=== PATIENT | female | born 1995 | race Caucasian/White ===

== ENCOUNTER 2016-10-24 07:55 | Inpatient (IN) ==
[2016-10-24] MEDS ORDERED: Metoclopramide 10 MG/2 ML VIAL IVP PRN (08:25)
[2016-10-24] MEDS ORDERED: miSOPROStol 25 MCG TABLET PO PRN (08:25)
[2016-10-24] MEDS ORDERED: Ondansetron 4 MG/2 ML VIAL IVP PRN (08:25)
[2016-10-24] MEDS ORDERED: Famotidine 20 MG/2 ML VIAL IVP PRN (08:25)
[2016-10-24] MEDS ORDERED: Ringers Solution, Lactated 1,000 ML IVC SCH (08:30)
--- NOTE | 2016-10-24 08:31 | OB/GYN History & Physical ---
Date of Encounter: 10/24/16 Time of Encounter: 08:31 Assessment and Plan (1) 39 weeks gestation of Current visit: Yes Status: Acute (2) Elective induction of labor planned Current visit: Yes Status: Acute (3) Tobacco use affecting in third trimester, antepartum Current visit: Yes Status: Chronic (4) Obesity affecting in third trimester Current visit: Yes Status: Chronic (5) Rubella non-immune status, antepartum Current visit: Yes Status: Acute History of Present Illness HPI: Ms. Slaughter is a 21 year old female EDC 10/26/16 at 39 weeks for elective induction of labor. See full H&P in eCW. GBS negative, Rubella non-immune, Rh positive. Past Med Surg Social Fam HX - Past Medical History Medical history: no medical history Psychiatric history: no psych history - Past Surgical History Surgical History: no surgical history - Social History Smoking Status: Current every day smoker Smokeless Tobacco Status: No Alcohol use: none Drug use: none Medications and Allergies No Known Home Drugs 10/12/15 [History] Allergies No Known Allergies Allergy (Verified 02/12/16 17:45) Results All other labs normal. - VTE Reasons for not Prescribing Prophylaxis: Treatment not Indicated - Low risk for VTE
[2016-10-24 09:09] LABS: Basophils % 0.2 %; Eosinophils # 0.1 K/mcL (0.0-0.6); Eosinophils % 1.7 %; Hematocrit 33.5 % (35.3-44.9); Immature Granulocytes % 0.2 % (0-4); Lymphocytes # 1.5 K/mcL (0.6-4.6); Lymphocytes % 22.8 %; Mean Corpuscular HGB Conc 32.8 g/dL (31.6-35.5); Mean Corpuscular Hemoglobin 29.1 pg (28.0-33.3); Mean Corpuscular Volume 88.6 fL (83.0-100.0); Mean Platelet Volume 10.4 fL (9.4-12.4); Monocytes # 0.4 K/mcL (0.0-1.3); Monocytes % 5.8 %; Neutrophils # 4.5 K/mcL (1.6-8.9); Platelet Count 163 K/mcL (140-400); Red Blood Count 3.78 M/mcL (3.82-4.97); Red Cell Distribution Width 15.4 % (11.5-14.5); Segmented Neutrophils % 69.3 %
--- NOTE | 2016-10-24 13:27 | OB Labor Progress Note ---
Date of Encounter: 10/24/16 Time of Encounter: 13:25 Labor Progress Note - Subjective Subjective: Patient resting in bed. Discussed POC with patient. Patient denies any questions or concerns. - Cervix Cervix: 5/80/-1 - Heart Tones Heart Tones: 150 bpm moderate variability +15x15 accels no decels noted. Cat. 1 tracing. - [place]: 2.5-3 min apart - Interventions Interventions: SVE, AROM moderate amount of clear fluid noted. IUPC placed without difficulty. Patient tolerated well. - Plan Plan: Continue labor management. Patient may have nubain or epidural for pain management if needed.
[2016-10-24] MEDS ORDERED: *HR* FentaNYL (PF) 100 MCG/2 ML VIAL EP ONE (14:17)
[2016-10-24] MEDS ORDERED: Bupivacaine-MPF 0.25% 10 ML VIAL EP ONE (14:17)
[2016-10-24] MEDS ORDERED: Epidural Premix (fent/bupiv) 110 ML EP ONE (14:19)
[2016-10-24] MEDS ORDERED: Bupivacaine-MPF 0.25% 10 ML VIAL ONE (14:19)
[2016-10-24] MEDS ORDERED: *HR* FentaNYL (PF) 100 MCG/2 ML VIAL ONE (14:19)
[2016-10-24] MEDS ORDERED: Epidural Premix (fent/bupiv) 110 ML EP SCH (14:30)
--- NOTE | 2016-10-24 15:12 | OB Labor Progress Note ---
Date of Encounter: 10/24/16 Time of Encounter: 15:10 Labor Progress Note - Subjective Subjective: Patient resting comfortably with epidural in place. Patient denies any needs. - Cervix Cervix: 8/100/0 - Heart Tones Heart Tones: 135 bpm moderate variability +15x15 accels no decels noted. CAt. 1 tracing. - [place]: 1.5-2 min apart - Interventions Interventions: SVE - Plan Plan: Continue labor management.
--- NOTE | 2016-10-24 15:12 | Anesthesia Evaluation PreOp ---
Date of Encounter: 10/24/16 Time of Encounter: 14:10 - Past History Planned Operation: labor epidural Cardiac History: Denies any Significant Hx Pulmonary History: Denies Any Significant HX, Smoker (smokes 3-4 cigarettes per day.) BUFFER CHROME History: Denies Any Significant HX Other Medical History: Denies Any Significant HX Anesthesia History: No Prior Anesthetic Complications, Past Anesthesia (T&A as child. No family history of anesthetic complications.) : Yes Alcohol Use: none Drug use: none Medications and Allergies Vit Calc,Iron,Folic [ Vitamins] 1 tab PO DAILY 10/24/16 [ History] Allergies No Known Allergies Allergy (Verified 02/12/16 17:45) - Meds/Allergy Pre-op Review Medications Reviewed: Yes Allergies Reviewed: Yes Beta Blockers on Current Med List: No Anesthesia Results - Labs 10/24/16 08:44 Anesthesia Exam 129/79, 98, 16, 97% Height: 5'9" Weight: 109 kg NPO (# of Hours): 6 Pain Scale: 8 Pain Scale Used: Numeric (1 - 10) - HEENT Pupil (Motor): EOMI Mallampati: III Teeth: Poor dentition Oral Opening: Greater than 3 - BUFFER [place]ROME LOC: Oriented [place] Motor: Normal RUE, Normal LUE, Normal RLE, Normal LLE, Normal Face BUFFER CHROME Sensory: Normal: RUE, LUE, RLE, LLE, Face - Cardiac Rhythm: Regular Murmur: None - Pulmonary Breath Sounds: bilateral Clear Respiratory Effort: Symmetrical Anesthesia Assess/Plan ASA Score: 2 Modified Aiken Scale for Level of Consciousness: Cooperative, oriented, and tranquil Anesthetic Plan: Regional Monitoring Plan: Standard Monitors
--- NOTE | 2016-10-24 15:16 | Anesthesia Procedures ---
Date of Encounter: 10/24/16 Time of Encounter: 14:21 Procedures: Anesthesia - Epidural/Spinal Patient ID/Chart reviewed: Yes Patient examined: Yes OB Eval: Gestational age: 39 OB Eval: : 2 OB Eval: Hx Para: 1 OB Eval: Dilated at (cm): 4 OB Eval: Contractions: Non-stressed pattern Consent Obtained: Yes Supplemental Oxygen: None/Room Air Site Prep: Aseptic Technique, Sterile prep and drape, Povidone-Iodine 1% Patient position: upright Local Anesthetic: Lidocaine 1% Amount of Local Anesthetic used: 3 Touhy Needle Gauge: 18 Touhy Needle Depth (cm): 6 Catheter Depth at Skin (cm): 18 Test Dose (1.5% Lido + Epi): Volume given (mls): 3 Test Dose Result: Negative Loading Dose: 0.25% Marcaine (mls): 8 Loading Dose: Fentanyl (mcg): 100 Loading Dose Administered: Thru Catheter Infusion Med: 0.125% Bupivacaine w/ 2 mcg/ml Fentanyl Infusion Rate (mls/hr): [address]: Tegaderm, Tape Interspace Used: L3-L4 Loss of Resistance (VERONICA): Yes Blood: No CSF: No Paresthesia: No Vitals + FHT's: 3 Vital Signs Time 1425 1430 1435 1440 1445 1450 BP 157/94 159/96 148/96 152/89 151/92 153/72 Pulse 82 89 85 64 66 65 FHTs 140 140 140 140 140 140
[2016-10-24] MEDS ORDERED: Oxytocin 20 units/ LR 1000 mL 20 UNIT/1,000 ML BAG IVC ONE ×2 (15:30→18:27)
[2016-10-24] MEDS ORDERED: Lidocaine 1% 20 ML MDV ONE (15:30)
--- NOTE | 2016-10-24 16:01 | OB/GYN Procedure Note ---
Delivery - Delivery Date: 10/24/16 Provider: Zuhair Bowles Intrapartum events: none Delivery induction: misoprostol Delivery augmentation: rupture of membranes Delivery monitor: external FHT, external uterine, internal uterine Anesthesia: epidural Estimated Blood Loss: 300 - (s) A Infant Delivery Date: 10/24/16 Infant Delivery Time: 15:28 Presentation: vertex Position: RAE Route of delivery: Gender: Female Viability: Viable Pounds: 7 Ounces: 7 Weight Gram: 3.38 kg at 1 minute: 8 at 5 mins: 9 Shoulder Dystocia: not encountered Specimens collected: cord blood Placenta: spontaneous Cord: 3 umbilical vessels - Repair Episiotomy: none Laceration Description: Perineal - 2nd Degree, Labial - Complications Delivery complications: none - Disposition Mom disposition: stable in LDR [place]ro[place] disposition: stable in LDR - Comments Comments: Patient progressed to complete dilatation and had a spontaneous vaginal delivery a viable female infant. scores were 8 and 9 at one and 5 minutes respectively, and the weighed 7 lbs. 7 oz. The placenta delivered spontaneously and appeared intact. Bilateral labial lacerations were repaired with 4-0 Vicryl suture, and a second-degree perineal laceration was repaired with 3-0 Vicryl suture. All sponge needle and sponge counts reported as correct. Estimated blood loss 300 mL's. No shoulder dystocia was encountered, no nuchal cord was present.
[2016-10-24] MEDS ORDERED: *HR* Acetaminophen w/Cod 300-30 mg 1 TAB TABLET PO PRN (18:27)
[2016-10-24] MEDS ORDERED: Measles/Mumps/Rubella Vacc 0.5 ML VIAL SQ PRN (18:27)
[2016-10-24] MEDS ORDERED: Ibuprofen 600 MG TABLET PO PRN (18:27)
[2016-10-24] MEDS ORDERED: Oxytocin 20 units/ LR 1000 mL 20 UNIT/1,000 ML BAG IV SCH (18:27)
[2016-10-24] MEDS ORDERED: Acetaminophen 325 MG TABLET PO PRN (18:27)
[2016-10-25 06:30] LABS: Eosinophils # 0.1 K/mcL (0.0-0.6); Eosinophils % 1.1 %; Hematocrit 30.9 % (35.3-44.9); Hemoglobin 10.3 g/dL (11.5-15.4); Immature Granulocytes % 0.4 % (0-4); Lymphocytes # 1.5 K/mcL (0.6-4.6); Lymphocytes % 17.4 %; Mean Corpuscular HGB Conc 33.3 g/dL (31.6-35.5); Mean Corpuscular Hemoglobin 29.9 pg (28.0-33.3); Mean Corpuscular Volume 89.8 fL (83.0-100.0); Mean Platelet Volume 10.7 fL (9.4-12.4); Monocytes # 0.5 K/mcL (0.0-1.3); Monocytes % 5.9 %; Neutrophils # 6.4 K/mcL (1.6-8.9); Platelet Count 137 K/mcL (140-400); Red Blood Count 3.44 M/mcL (3.82-4.97); Red Cell Distribution Width 15.4 % (11.5-14.5); Segmented Neutrophils % 75.2 %
[2016-10-25] MEDS ORDERED: Prenatal Vit/FA 1 EACH TABLET PO SCH (09:00)
[2016-10-25 09:12] VITALS: BP 132/77
--- NOTE | 2016-10-25 10:00 | Discharge Summary ---
Date of Encounter: 10/25/16 Time of Encounter: 09:58 - Discharge Diagnosis (1) Status post vaginal delivery Priority: Primary Status: Acute Comments: Continue routine care discharge home today follow up with Dr. Bowles in 4-6 weeks - Discharge Medications Prescriptions: Ibuprofen Susp [Motrin Susp] 600 mg PO Q6HR PRN 14 Days PRN Reason: Cramping Home Medications: Vit Calc,Iron,Folic [ Vitamins] 1 tab PO DAILY 10/24/16 [ History] Ibuprofen Susp [Motrin Susp] 600 mg PO Q6HR PRN 14 Days 10/25/16 [Rx] Vit/FA 1 each PO DAILY tablet 10/25/16 [Rx] Allergies/Adverse Reactions: Allergies No Known Allergies Allergy (Verified 02/12/16 17:45) Data Procedures and tests throughout hospitalization: Laboratory Tests 10/24/16 10/25/16 08:44 06:10 WBC 6.5 8.5 RBC 3.78 L 3.44 L Hgb 11.0 L 10.3 L Hct 33.5 L 30.9 L MCV 88.6 89.8 MCH 29.1 29.9 MCHC 32.8 33.3 RDW 15.4 H 15.4 H Plt Count 163 137 L MPV 10.4 10.7 Immature Gran % 0.2 0.4 Seg Neutrophils % 69.3 75.2 Lymphocytes % 22.8 17.4 Monocytes % 5.8 5.9 Eosinophils % 1.7 1.1 Basophils % 0.2 0.0 Neutrophils # 4.5 6.4 Lymphocytes # 1.5 1.5 Monocytes # 0.4 0.5 Eosinophils # 0.1 0.1 Basophils # 0.0 0.0 Labs on day of discharge: Labs from last 24 hours 10/25/16 06:10 WBC 8.5 RBC 3.44 L Hgb 10.3 L Hct 30.9 L MCV 89.8 MCH 29.9 MCHC 33.3 RDW 15.4 H Plt Count 137 L MPV 10.7 Immature Gran % 0.4 Seg Neutrophils % 75.2 Lymphocytes % 17.4 Monocytes % 5.9 Eosinophils % 1.1 Basophils % 0.0 Neutrophils # 6.4 Lymphocytes # 1.5 Monocytes # 0.5 Eosinophils # 0.1 Basophils # 0.0 Date of admission: 10/24/16 07:55 Primary care physician: PCP NO Consults: 10/24/16 18:27 Consult to Hospital Staff Pharmacist [CONS] Routine Comment: Vaginal delivery, consult needed Discharging clinician: Dona Reeves Anticipated date of discharge: 10/25/16 - Patient Status Disposition: Home, Self-Care Condition: Good Functional capacity at discharge: independent ambulation - Discharge Instructions Follow Up With: NO,PCP [Primary Care Provider] - Zuhair Bowles DO [Partnered Physician] - - Diet and Activity Activity: increase activity as tolerated Diet: regular diet Hospital Course Reason for admission: induction of labor Delivery: Episiotomy: none Other procedures: none complications: none Discharge diagnosis: IUP at term delivered [place] baby: female (bottle feeding) Time Attestation: Total time spent providing and/or coordinating discharge services: Time Spent: Less than 30 minutes Exam - Constitutional Vitals: Temp Pulse Resp BP Pulse Ox 97.7 F 85 16 132/77 97 10/25/16 08:55 10/25/16 08:55 10/25/16 08:55 10/25/16 08:55 10/25/16 08:55 General appearance IM: A&O X 3, pleasant, answers questions appropriately - Respiratory Respiratory exam: Present: CTAB - Cardiovascular Cardiovascular exam IM: Present: RRR, +S1, +S2 - GI/Abdominal GI/Abdominal exam IM: normal bowel sounds - Uterine Tone: Firm Uterus Position: 1 Finger Below Umbilicus, Midline - Extremities Exam Extremities exam IM: Present: full ROM, normal capillary refill, normal inspection - Neurological Exam Neurological exam: alert, oriented X3, reflexes normal
== END 2016-10-25 12:40 | disposition home or self-care (01) | DRG 560 ==
LOC: 1NENULAB 07:55 → 1NENUOBS 17:55

== ENCOUNTER → 2018-01-08 23:15 | Observation (INO) ==
[2018-01-08 21:55] LABS: Bilirubin,Urine Negative (Negative); Blood,Urine Negative (Negative); Clarity,Urine Clear (Clear); Color,Urine Yellow (Yellow); Glucose,Urine (UA) Normal (Normal); Ketones,Urine Negative (Negative); Leukocyte Esterase,Urine Small (Negative); Nitrite,Urine Negative (Negative); PH,Urine 6.5 pH Units (5.0-8.0); Protein,Urine Negative (Neg-Trace); Specific Gravity,Urine 1.026 (1.010-1.025); Urobilinogen,Urine Normal (Normal)
[2018-01-08 21:58] LABS: Bacteria,Urine Few per hpf (None-Few); Hyaline Casts,Urine None Seen per lpf (None-Few); Squamous Epithelial Cell,Urine Many per lpf (None-Few); WBC,Urine 15-30 per hpf (0-3)
[2018-01-08 22:02] LABS: Amphetamine Screen,Urine Negative ng/mL (Cutoff=1000); Barbiturate Screen,Urine Negative ng/mL (Cutoff=200); Benzodiazepines Screen,Urine Negative ng/mL (Cutoff=200); Cannabinoid Screen,Urine Negative ng/mL (Cutoff = 50); Cocaine Screen,Urine Negative ng/mL (Cutoff= 300); Opiate Screen,Urine Negative ng/mL (Cutoff=300); Phencyclidine Screen,Urine Negative ng/mL (Cutoff=25)
--- NOTE | 2018-01-08 23:14 | OB/GYN Progress Note ---
Date of Encounter: 01/08/18 Time of Encounter: 23:10 - Assessment and Plan (1) Suprapubic pressure Current Visit: Yes Status: Acute Reactive NST No uterine contractions Urinalysis suspicious for contamination Increased specific gravity Discharge home with labor precautions and kick counts Increase po hydration Follow up with Dr. Valdivia for visit as scheduled and prn (2) 29 weeks gestation of Current Visit: Yes Status: Acute Subjective - Subjective Interval history: 22 year old at 29 weeks and 4 days presents to triage with complaints lower abdominal pressure. Denies vaginal bleeding, itching and burning, leaking fluid and intercourse in past 24 hours. Denies dysuria. States baby moving well. Patient receives care from Dr. Valdivia in [place]. Objective - Vital Signs Vital Signs: Intake and Output 01/08/18 01/08/18 01/08/18 07:59 15:59 23:59 Other: Weight 109 kg Patient Weight 01/08/18 23:59 Weight 109 kg - Exam FHR: category 1 FHR comments: 140 Auscultation: bilateral: normal Abdomen: Present: soft, gravid Uterus: Present: normal - Labs Labs: Abnormal lab results Ur Specific [place] 1.026 (1.010-1.025) H 01/08/18 21:43 Ur Leukocyte Esterase Small (Negative) H 01/08/18 21:43 Urine Microscopic RBC 3-5 per hpf (0-3) H 01/08/18 21:43 Urine Microscopic WBC 15-30 per hpf (0-3) H 01/08/18 21:43 Ur Squamous Epith Cells Many per lpf (None-Few) H 01/08/18 21:43 Ur Culture Indicated? NO. (NO) A 01/08/18 21:43
== END | disposition home or self-care (01) ==
LOC: 1NENULAB
PROVIDERS: ADMIT Student in an Organized Health Care Education/Training Program; ATTEND Student in an Organized Health Care Education/Training Program

== ENCOUNTER 2018-03-05 01:32 | Observation (INO) ==
[2018-03-05 02:16] LABS: Amphetamine Screen,Urine Negative ng/mL (Cutoff=1000); Barbiturate Screen,Urine Negative ng/mL (Cutoff=200); Benzodiazepines Screen,Urine Negative ng/mL (Cutoff=200); Cannabinoid Screen,Urine Negative ng/mL (Cutoff = 50); Cocaine Screen,Urine Negative ng/mL (Cutoff= 300); Opiate Screen,Urine Negative ng/mL (Cutoff=300); Phencyclidine Screen,Urine Negative ng/mL (Cutoff=25)
--- NOTE | 2018-03-05 05:38 | OB/GYN Progress Note ---
Date of Encounter: 03/05/18 Time of Encounter: 05:35 - Assessment and Plan (1) 38 weeks gestation of Status: Acute Continue care as scheduled with Dr. Valdivia Labor precautions given Discharge home (2) NST (non-stress test) reactive on surveillance Status: Acute Subjective - Subjective Principal diagnosis: Vaginal pressure Interval history: Ms. Slaughter presents to labor and delivery with complaint of vaginal pressure and contractions. She is a patient of Dr. Valdivia's. She endorses good movement and denies leakage of fluid and vaginal bleeding. Antepartum ROS: new complaints, movement normal, contractions, no loss of fluid, no vaginal bleeding Objective - Exam FHR: category 1 FHR comments: Baseline 130 Moderate variability Accelerations present 15x15 No Decelerations FHR category I Singular contraction on toco along with irritability Auscultation: bilateral: normal Abdomen: Present: normal appearance, soft, gravid Uterus: Present: normal, firm Cervical dilation: 2-3 per RN Cervix effacement: 50 station: -2
== END 2018-03-05 03:30 | disposition home or self-care (01) ==
LOC: 1NENULAB
PROVIDERS: ADMIT Advanced Practice Midwife; ATTEND Advanced Practice Midwife

== ENCOUNTER → 2018-03-10 22:28 | Observation (INO) ==
[2018-03-10 20:57] LABS: Bilirubin,Urine Negative (Negative); Blood,Urine Negative (Negative); Clarity,Urine Cloudy (Clear); Color,Urine Yellow (Yellow); Glucose,Urine (UA) Normal (Normal); Ketones,Urine Negative (Negative); Leukocyte Esterase,Urine Small (Negative); Nitrite,Urine Negative (Negative); PH,Urine 6.5 pH Units (5.0-8.0); Protein,Urine Negative (Neg-Trace); Specific Gravity,Urine 1.019 (1.010-1.025); Urobilinogen,Urine Normal (Normal)
[2018-03-10 21:00] LABS: Bacteria,Urine None Seen per hpf (None-Few); Hyaline Casts,Urine None Seen per lpf (None-Few); Squamous Epithelial Cell,Urine Many per lpf (None-Few)
[2018-03-10 21:07] LABS: Amphetamine Screen,Urine Negative ng/mL (Cutoff=1000); Barbiturate Screen,Urine Negative ng/mL (Cutoff=200); Benzodiazepines Screen,Urine Negative ng/mL (Cutoff=200); Cannabinoid Screen,Urine Negative ng/mL (Cutoff = 50); Cocaine Screen,Urine Negative ng/mL (Cutoff= 300); Opiate Screen,Urine Negative ng/mL (Cutoff=300); Phencyclidine Screen,Urine Negative ng/mL (Cutoff=25)
--- NOTE | 2018-03-10 22:03 | Discharge Summary ---
Date of Encounter: 03/10/18 Time of Encounter: 22:02 - Discharge Diagnosis (1) 37 weeks gestation of Priority: Primary Status: Acute Comments: admitted for labor evaluation No cervical change false labor discharge home follow up with OB provider (2) NST (non-stress test) reactive on surveillance Priority: Secondary Status: Acute Comments: baseline 125 bpm moderate variability +15x15 accels no decels noted. - Discharge Medications Home Medications: [place] Complete 1 PO DAILY 03/05/18 [History] Allergies/Adverse Reactions: 3 Allergy/AdvReac Type Severity Reaction Status Date / Time No Known Allergies Allergy Verified 11/25/16 21:39 Data Procedures and tests throughout hospitalization: Laboratory Tests 03/10/18 03/10/18 20:30 20:30 Urine Color Yellow Urine Clarity Cloudy A Urine pH 6.5 Ur Specific [place] 1.019 Urine Protein Negative Urine Glucose (UA) Normal Urine Ketones Negative Urine Blood Negative Urine Nitrite Negative Urine Bilirubin Negative Urine Urobilinogen Normal Ur Leukocyte Esterase Small H Urine Microscopic RBC 5-15 H Urine Microscopic WBC 5-15 H Ur Squamous Epith Cells Many H Urine Bacteria None Seen Hyaline Casts None Seen Ur Culture Indicated? NO. A Urine Opiates Screen Negative Ur Barbiturates Screen Negative Ur Phencyclidine Scrn Negative Ur Amphetamines Screen Negative U Benzodiazepines Scrn Negative Urine Cocaine Screen Negative U Marijuana (THC) Screen Negative Labs on day of discharge: Labs from last 24 hours 03/10/18 03/10/18 20:30 20:30 Urine Color Yellow Urine Clarity Cloudy A Urine pH 6.5 Ur Specific [place] 1.019 Urine Protein Negative Urine Glucose (UA) Normal Urine Ketones Negative Urine Blood Negative Urine Nitrite Negative Urine Bilirubin Negative Urine Urobilinogen Normal Ur Leukocyte Esterase Small H Urine Microscopic RBC 5-15 H Urine Microscopic WBC 5-15 H Ur Squamous Epith Cells Many H Urine Bacteria None Seen Hyaline Casts None Seen Ur Culture Indicated? NO. A Urine Opiates Screen Negative Ur Barbiturates Screen Negative Ur Phencyclidine Scrn Negative Ur Amphetamines Screen Negative U Benzodiazepines Scrn Negative Urine Cocaine Screen Negative U Marijuana (THC) Screen Negative Date of admission: 03/10/18 20:18 Discharging clinician: Dona Reeves Anticipated date of discharge: 03/10/18 - Patient Status Disposition: Home, Self-Care Condition: Good Functional capacity at discharge: independent ambulation - Discharge Instructions Follow Up With: Floyd Valdivia MD [Non-Partnered Physician] - - Diet and Activity Activity: increase activity as tolerated Hospital Course [employer] Hospital course: Patient is a 22 y/o at 37 weeks gestation presents to labor and delivery with with complaints of contractions. Patient denies LOF or VB. Patient reports + movement. Patient was 3cm on arrival and no cervical change was made after evaluation. Time Attestation: Total time spent providing and/or coordinating discharge services: Time Spent: Less than 30 minutes Exam - Constitutional General appearance IM: A&O X 3, pleasant, answers questions appropriately - Other Additional findings: FHR 125 bpm moderate variability +15x15 accels no decels noted. Cat. 1 tracing. - VTE Reasons for not Prescribing Prophylaxis: Treatment not Indicated - Low risk for VTE
== END | disposition home or self-care (01) ==
LOC: 1NENULAB
PROVIDERS: ADMIT Advanced Practice Midwife; ATTEND Advanced Practice Midwife

== ENCOUNTER → 2018-03-18 01:54 | Observation (INO) ==
[2018-03-18 00:21] LABS: Amphetamine Screen,Urine Negative ng/mL (Cutoff=1000); Barbiturate Screen,Urine Negative ng/mL (Cutoff=200); Benzodiazepines Screen,Urine Negative ng/mL (Cutoff=200); Cannabinoid Screen,Urine Negative ng/mL (Cutoff = 50); Cocaine Screen,Urine Negative ng/mL (Cutoff= 300); Opiate Screen,Urine Negative ng/mL (Cutoff=300); Phencyclidine Screen,Urine Negative ng/mL (Cutoff=25)
--- NOTE | 2018-03-18 01:36 | OB/GYN Progress Note ---
Date of Encounter: 03/18/18 Time of Encounter: 01:35 - Assessment and Plan (1) 37 weeks gestation of Current Visit: Yes Status: Acute Seen by nurses for labor evaluation No cervical change NST reactive UDS negative Discharged home with labor precautions Follow up in office with routine care and PRN (2) NST (non-stress test) reactive on surveillance Current Visit: Yes Status: Acute Subjective - Subjective Principal diagnosis: rightsided pain that radiates to vagina Antepartum ROS: new complaints, movement normal, no vaginal bleeding, no contractions Objective - Exam FHR: auscultation normal, category 1 FHR comments: Baseline 130 reactive NST
== END | disposition home or self-care (01) ==
LOC: 1NENULAB
PROVIDERS: ADMIT Advanced Practice Midwife; ATTEND Advanced Practice Midwife

== ENCOUNTER 2019-10-04 19:33 | Observation (INO) ==
[2019-10-04 21:34] LABS: Amphetamine Screen,Urine Negative ng/mL (Cutoff=1000); Barbiturate Screen,Urine Negative ng/mL (Cutoff=200); Benzodiazepines Screen,Urine Negative ng/mL (Cutoff=200); Cannabinoid Screen,Urine Negative ng/mL (Cutoff = 50); Cocaine Screen,Urine Negative ng/mL (Cutoff= 300); Opiate Screen,Urine Negative ng/mL (Cutoff=300); Phencyclidine Screen,Urine Negative ng/mL (Cutoff=25)
[2019-10-04 21:36] LABS: Bilirubin,Urine Negative (Negative); Blood,Urine Negative (Negative); Clarity,Urine Cloudy (Clear); Color,Urine Yellow (Yellow); Glucose,Urine (UA) Normal (Normal); Ketones,Urine Negative (Negative); Leukocyte Esterase,Urine Moderate (Negative); Nitrite,Urine Negative (Negative); PH,Urine 6.5 pH Units (5.0-8.0); Protein,Urine Negative (Neg-Trace); Specific Gravity,Urine 1.018 (1.010-1.025); Urobilinogen,Urine Normal (Normal)
[2019-10-04 21:40] LABS: Bacteria,Urine None Seen per hpf (None-Few); Hyaline Casts,Urine None Seen per lpf (None-Few); Squamous Epithelial Cell,Urine Many per lpf (None-Few)
== END 2019-10-04 22:10 | disposition home or self-care (01) ==
LOC: 1NENULAB
PROVIDERS: ADMIT Advanced Practice Midwife; ATTEND Advanced Practice Midwife

== ENCOUNTER → 2019-10-11 02:26 | Observation (INO) ==
[2019-10-11 00:42] LABS: Amphetamine Screen,Urine Negative ng/mL (Cutoff=1000); Barbiturate Screen,Urine Negative ng/mL (Cutoff=200); Benzodiazepines Screen,Urine Negative ng/mL (Cutoff=200); Cannabinoid Screen,Urine Negative ng/mL (Cutoff = 50); Cocaine Screen,Urine Negative ng/mL (Cutoff= 300); Opiate Screen,Urine Negative ng/mL (Cutoff=300); Phencyclidine Screen,Urine Negative ng/mL (Cutoff=25)
[2019-10-11 01:44] LABS: Creatinine,Urine 86 mg/dL; Protein/Creatinine Ratio,Urine 0.31 mg/mg (0.00-0.20)
[2019-10-11 01:49] LABS: Basophils % 0.3 %; Eosinophils # 0.1 K/mcL (0.0-0.6); Eosinophils % 1.2 %; Hematocrit 31.7 % (35.3-44.9); Hemoglobin 10.3 g/dL (11.5-15.4); Immature Granulocytes % 0.1 % (0-4); Lymphocytes # 1.9 K/mcL (0.6-4.6); Lymphocytes % 25.2 %; Mean Corpuscular HGB Conc 32.5 g/dL (31.6-35.5); Mean Corpuscular Hemoglobin 27.2 pg (28.0-33.3); Mean Corpuscular Volume 83.9 fL (83.0-100.0); Monocytes # 0.4 K/mcL (0.0-1.3); Neutrophils # 5.1 K/mcL (1.6-8.9); Platelet Count 211 K/mcL (140-400); Red Blood Count 3.78 M/mcL (3.82-4.97); Red Cell Distribution Width 14.4 % (11.5-14.5); Segmented Neutrophils % 68.2 %; White Blood Count 7.4 K/mcL (4.3-11.1)
[2019-10-11 02:07] LABS: Alanine Aminotransferase 3 Units/L (7-52); Aspartate Amino Transferase 8 Units/L (13-39); BUN/Creatinine Ratio 14 (6-26); Blood Urea Nitrogen 7 mg/dL (6-20); Lactate Dehydrogenase 133 Units/L (140-271); Uric Acid 2.3 mg/dL (2.3-7.6); eGFR For African Americans > 60 (> 60); eGFR For Non-African Americans > 60 (> 60)
== END | disposition home or self-care (01) ==
LOC: 1NENULAB
PROVIDERS: ADMIT Advanced Practice Midwife; ATTEND Advanced Practice Midwife

== ENCOUNTER → 2020-12-15 03:37 | Observation (INO) ==
[2020-12-15 02:55] LABS: Bacteria,Urine Few per hpf (None-Few); Bilirubin,Urine Negative (Negative); Blood,Urine Negative (Negative); Clarity,Urine Turbid (Clear); Color,Urine Yellow (Yellow); Glucose,Urine (UA) Normal (Normal); Ketones,Urine Negative (Negative); Leukocyte Esterase,Urine Moderate (Negative); Mucus,Urine Few per lpf (None-Few); Nitrite,Urine Negative (Negative); PH,Urine 6.5 pH Units (5.0-8.0); Protein,Urine 30 mg/dL (Neg-Trace); Specific Gravity,Urine 1.028 (1.010-1.025); Squamous Epithelial Cell,Urine Few per hpf (None-Few)
[2020-12-15 03:10] LABS: Amphetamine Screen,Urine Negative ng/mL (Cutoff=1000); Barbiturate Screen,Urine Negative ng/mL (Cutoff=200); Benzodiazepines Screen,Urine Negative ng/mL (Cutoff=200); Cannabinoid Screen,Urine Negative ng/mL (Cutoff = 50); Cocaine Screen,Urine Negative ng/mL (Cutoff= 300); Opiate Screen,Urine Negative ng/mL (Cutoff=300); Phencyclidine Screen,Urine Negative ng/mL (Cutoff=25)
[~2020-12-15 03:37] MED LIST: Nitrofurantoin (BID) 100 MG CAPSULE PO ONE
== END | disposition home or self-care (01) ==
LOC: 1NENULAB
PROVIDERS: ADMIT Student in an Organized Health Care Education/Training Program; ATTEND Student in an Organized Health Care Education/Training Program

== ENCOUNTER → 2021-01-10 19:24 | Observation (INO) ==
[2021-01-10 19:03] LABS: Bacteria,Urine Few per hpf (None-Few); Bilirubin,Urine Negative (Negative); Blood,Urine Negative (Negative); Calcium Oxalate Crystals,Urine Present; Clarity,Urine Turbid (Clear); Color,Urine Yellow (Yellow); Glucose,Urine (UA) Normal (Normal); Ketones,Urine Negative (Negative); Leukocyte Esterase,Urine Trace (Negative); Mucus,Urine Few per lpf (None-Few); Nitrite,Urine Negative (Negative); PH,Urine 6.5 pH Units (5.0-8.0); Protein,Urine 30 mg/dL (Neg-Trace); RBC,Urine 15-30 per hpf (0-3); Specific Gravity,Urine 1.024 (1.010-1.025); Squamous Epithelial Cell,Urine Moderate per hpf (None-Few); WBC,Urine 0-3 per hpf (0-3)
== END | disposition home health service (06) ==
LOC: 1NENULAB
PROVIDERS: ADMIT Obstetrics & Gynecology; ATTEND Obstetrics & Gynecology

== ENCOUNTER → 2021-01-24 23:39 | Observation (INO) | END | disposition home or self-care (01) | LOC: 1NENULAB | PROVIDERS: ADMIT Student in an Organized Health Care Education/Training Program; ATTEND Student in an Organized Health Care Education/Training Program ==

== ENCOUNTER 2021-01-27 17:20 | Inpatient (IN) ==
[~2021-01-27 17:20] MED LIST changes: +Famotidine 20 MG/2 ML VIAL IVP PRN; +Metoclopramide 10 MG/2 ML VIAL IVP PRN; +Naloxone 0.4 MG/ML INJ IVP PRN; -Nitrofurantoin (BID) 100 MG CAPSULE PO ONE; +Ondansetron 4 MG/2 ML VIAL IVP PRN; +Ringers Solution, Lactated 1,000 ML IVC SCH
[2021-01-27 17:51] LABS: Basophils % 0.2 %; Eosinophils # 0.1 K/mcL (0.0-0.6); Eosinophils % 1.2 %; Hemoglobin 9.8 g/dL (11.5-15.4); Immature Granulocytes % 0.3 % (0-4); Lymphocytes # 1.2 K/mcL (0.6-4.6); Lymphocytes % 20.7 %; Mean Corpuscular HGB Conc 31.6 g/dL (31.6-35.5); Mean Corpuscular Hemoglobin 26.6 pg (28.0-33.3); Mean Corpuscular Volume 84.2 fL (83.0-100.0); Monocytes # 0.3 K/mcL (0.0-1.3); Monocytes % 5.2 %; Neutrophils # 4.3 K/mcL (1.6-8.9); Platelet Count 165 K/mcL (140-400); Red Blood Count 3.68 M/mcL (3.82-4.97); Red Cell Distribution Width 14.8 % (11.5-14.5); Segmented Neutrophils % 72.4 %
[2021-01-27 18:30] LABS: Amphetamine Screen,Urine Negative ng/mL (Cutoff=1000); Barbiturate Screen,Urine Negative ng/mL (Cutoff=200); Benzodiazepines Screen,Urine Negative ng/mL (Cutoff=200); Cannabinoid Screen,Urine Negative ng/mL (Cutoff = 50); Cocaine Screen,Urine Negative ng/mL (Cutoff= 300); Opiate Screen,Urine Negative ng/mL (Cutoff=300); Phencyclidine Screen,Urine Negative ng/mL (Cutoff=25)
[2021-01-27 18:48] LABS: Adenovirus Not Detected (Not Detect); Bordetella Pertussis Not Detected (Not Detect); Chlamydophila pneumoniae Not Detected (Not Detect); Coronavirus 229E Not Detected (Not Detect); Coronavirus HKU1 Not Detected (Not Detect); Coronavirus NL63 Not Detected (Not Detect); Coronavirus OC43 Not Detected (Not Detect); Human Metapneumovirus Not Detected (Not Detect); Human Rhinovirus/Enterovirus Not Detected (Not Detect); Influenza A Subtype 2009 H1 Not Detected (Not Detect); Influenza B Not Detected (Not Detect); Mycoplasma pneumoniae Not Detected (Not Detect); Parainfluenza Virus 1 Not Detected (Not Detect); Parainfluenza Virus 2 Not Detected (Not Detect); Parainfluenza Virus 3 Not Detected (Not Detect); Parainfluenza Virus 4 Not Detected (Not Detect); Respiratory Syncytial Virus Not Detected (Not Detect); SARS-CoV-2 Not Detected (Not Detect)
[2021-01-27] MEDS ORDERED: miSOPROStoL 25 MCG TABLET VG PRN (18:53)
[2021-01-27] MEDS ORDERED: Ropivacaine/PF 0.2% 20 ML VIAL EP ONE (19:34)
[2021-01-27] MEDS ORDERED: *HR* FentaNYL (PF) 100 MCG/2 ML VIAL EP ONE (19:34)
[2021-01-27] MEDS ORDERED: EPHEDrine 50 MG/ML VIAL IVP PRN (19:34)
[2021-01-27] MEDS ORDERED: *HR* FentaNYL (PF) 100 MCG/2 ML VIAL ONE (19:37)
[2021-01-27] MEDS ORDERED: Ropivacaine/PF 0.2% 20 ML VIAL ONE (19:37)
[2021-01-27] MEDS ORDERED: Epidural Premix (fent/bupiv) 110 ML EP SCH (19:45)
[2021-01-27] MEDS ORDERED: Oxytocin 20 units/ LR 1000 mL 20 UNIT/1,000 ML BAG IVC ONE (21:57)
[2021-01-28] MEDS ORDERED: Oxytocin 20 units/ LR 1000 mL 20 UNIT/1,000 ML BAG IVC SCH (00:33)
[2021-01-28] MEDS ORDERED: Measles/Mumps/Rubella Vacc 0.5 ML VIAL SQ PRN (00:33)
[2021-01-28] MEDS ORDERED: Acetaminophen 325 MG TABLET PO PRN (00:33)
[2021-01-28] MEDS ORDERED: Ibuprofen 600 MG TABLET PO PRN (00:33)
[2021-01-28] MEDS: Prenatal Vit/FA 1 EACH TABLET PO SCH (08:22)
[2021-01-29 08:07] VITALS: BP 128/70
[2021-01-29] MEDS: Prenatal Vit/FA 1 EACH TABLET PO SCH (09:33)
== END 2021-01-29 11:30 | disposition home or self-care (01) | DRG 560 ==
LOC: 1NENULAB → 1NENUOBS 01-28 00:48
PROVIDERS: ADMIT Obstetrics & Gynecology; ATTEND Obstetrics & Gynecology